=== PATIENT | female | born 1955 | race Caucasian/White ===

== ENCOUNTER → 2017-01-19 | Outpatient (CLI) | payer OTHER ==
[~2017-01-19] MED LIST: ASA CHILDREN'S81 MG OP; BACITRACIN15 G1 TP; CALCIUM600 MG PO; CATAPRES-DPS0.1 MG PO; COZAAR DPS50 MG PO; KLOR-CON M2020 ME1 PO; LEVOTHYROXINE75 MCG PO; TENORETIC-50 DP1 TAB PO; TYLENOL DPS325 MG PO
== END | disposition home or self-care (01) ==
LOC: RAD.S 13:43
DX: E07.89 Other specified disorders of thyroid (principal)

== ENCOUNTER → 2017-01-24 | Outpatient (CLI) | payer OTHER | END | disposition home or self-care (01) | LOC: RAD.S 08:55 | PROC: 0GBH3ZX Excision of Right Thyroid Gland Lobe, Percutaneous Approach, Diagnostic (ICD-10-PCS; principal; 2017-01-24) | DX: R91.8 Other nonspecific abnormal finding of lung field (principal) ==